=== PATIENT | female | born 1950 | race Caucasian/White ===

== ENCOUNTER 2017-04-18 06:34 | Day surgery (SDC) | payer MEDICARE, BC ==
[2017-04-18] MEDS ORDERED: Lactated Ringers 1,000 ML IV SCH ×2 (06:58→08:00)
[2017-04-18] MEDS ORDERED: Midazolam 1 MG/ML 2 ML SDV ONE (07:28)
[2017-04-18] MEDS ORDERED: fentaNYL 100 MCG/2 ML SDV ONE (07:28)
[2017-04-18] MEDS ORDERED: Propofol 200 MG/20 ML SDV ONE (07:28)
[2017-04-18 09:22] VITALS: BP 123/71
--- NOTE | 2017-04-18 10:48 | OR ---
DATE OF PROCEDURE: 04/18/2017 PREOPERATIVE DIAGNOSIS: Positive Cologuard. POSTOPERATIVE DIAGNOSIS: Small proximal right colon polyp. PROCEDURE: Colonoscopy to the cecum with biopsy resection of small right colon polyp. SURGEON: Jose Morris MD. ANESTHESIA: IV anesthesia with monitored anesthesia care. INDICATION: This 66-year-old white female is referred for a colonoscopy. She has never had a colonoscopic exam. She did have a positive Cologuard. I counseled her for the procedure, including risks and alternatives, and she gave her informed consent to proceed. DESCRIPTION OF PROCEDURE: The patient was placed in the left lateral decubitus position. IV anesthesia was administered by the Anesthesia Service. Time-out was held. A rectal exam was performed, which was unremarkable. The flexible video Olympus colonoscope was introduced through her anus, up her rectum, and out her colon all the way to the cecum. Once the cecum was reached, the scope was slowly withdrawn, examining the mucosa throughout. In the proximal right colon, we saw a small polyp, which was removed with multiple bites of the biopsy forceps. The scope was withdrawn further then with no other lesions noted. The scope was retroflexed in the rectum with the distal rectum appearing unremarkable. The scope was straightened and removed. She tolerated the procedure well. Jose Morris MD /[id number] MTDD
== END 2017-04-18 09:55 | disposition home or self-care (01) ==
LOC: JP.SDS 06:34
PROVIDERS: ATTEND Surgery
DX: Z12.11 Encounter for screening for malignant neoplasm of colon (principal); D12.6 Benign neoplasm of colon, unspecified; E03.9 Hypothyroidism, unspecified
CPT/HCPCS: 45380; 88305; J2250; J2704; J3010; J7120

== ENCOUNTER 2019-09-08 06:22 | Day surgery (SDC) | payer MEDICARE, BC ==
[2019-09-08] MEDS ORDERED: Sodium Chloride 0.9% 1,000 ML IV SCH (07:00)
[2019-09-08] MEDS ORDERED: fentaNYL 100 MCG/2 ML SDV ONE (07:06)
[2019-09-08] MEDS ORDERED: Propofol 200 MG/20 ML SDV ONE (07:06)
[2019-09-08] MEDS ORDERED: Midazolam 1 MG/ML 2 ML SDV ONE (07:06)
[2019-09-08 09:05] VITALS: BP 112/67; PULSE 77
--- NOTE | 2019-09-08 11:58 | PROC ---
DATE OF PROCEDURE: 09/08/2019 SURGEON: Sang Wade MD PROCEDURE: Colonoscopy. PREPROCEDURE DIAGNOSIS: History of colon polyps. POSTPROCEDURE DIAGNOSES: 1. History of colon polyps. 2. Three small rectal polyps removed using biopsy forceps. DESCRIPTION OF PROCEDURE: Risks and goals of the procedure reviewed with the patient. She gave informed consent to proceed. She was brought back to the endoscopy room, sedation monitoring provided by [facility]. A time-out was held to confirm right patient, right side, right procedure, as well as to review any potential concerns concerning the procedure, of which there were none. She was placed in a left lateral decubitus position. After adequate sedation was achieved, a digital rectal exam was performed, which was remarkable for external hemorrhoids. Following this, a flexible colonoscope was placed and advanced out through the colon to cecum. The scope was then slowly withdrawn back through the length of the colon to the rectum, where it was retroflexed, straightened, and removed. Cecum was identified based on the ileocecal valve and appendiceal orifice. She was noted to have two 0.2 cm polyps in the rectum removed using biopsy forceps. There was also a 0.3 cm polyp in the rectum removed using biopsy forceps. No other mucosal polyps, masses, or lesions were seen. Procedure was otherwise completed without complication. Pathologic review of the biopsy specimen is pending at the time of this dictation. Sang Wade MD /[id number]
== END 2019-09-08 09:28 | disposition home or self-care (01) ==
LOC: JP.SDS 06:22
PROVIDERS: ATTEND Hospitalist
DX: Z12.11 Encounter for screening for malignant neoplasm of colon (principal); K62.1 Rectal polyp; Z86.010 Personal history of colon polyps
CPT/HCPCS: 45380; J2250; J2704; J3010; J7030; 88305

== ENCOUNTER 2022-09-05 07:45 | Day surgery (SDC) | payer MEDICARE, BC ==
[2022-09-05] MEDS ORDERED: Propofol 200 MG/20 ML SDV ONE (08:14)
[2022-09-05] MEDS ORDERED: fentaNYL 50 MCG/ML SDV ONE (08:14)
[2022-09-05] MEDS ORDERED: Lactated Ringers 1,000 ML IV SCH (08:30)
[2022-09-05 11:15] VITALS: BP 130/79; PULSE 69
== END 2022-09-05 11:34 | disposition home or self-care (01) ==
LOC: JP.SDS 07:45
PROVIDERS: ATTEND Family Medicine
DX: Z12.11 Encounter for screening for malignant neoplasm of colon (principal); K62.1 Rectal polyp; K64.8 Other hemorrhoids; E03.9 Hypothyroidism, unspecified; Z79.899 Other long term (current) drug therapy
CPT/HCPCS: 45380; 88305; J2704; J3010; J7120